=== PATIENT | male | born 1950 | race Caucasian/White ===

== ENCOUNTER 2022-05-03 13:34 | Emergency (ER) | payer OTHER ==
[~2022-05-03] VITALS: Ht 185.4 cm; Wt 91.6 kg
--- OUTSIDE RECORDS SUMMARY | 2022-05-03 16:55 | XMS ---
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 April VISIT COUNT (12 MO.) [address] TOTAL 3 NOTE: Visits indicate total known visits. 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 - Superficial foreign body, left foot, initial encounter - Type 2 diabetes mellitus without complications - Essential (primary) hypertension 08/03/2021 11:48 [facility] DAY [place] TYPE: Emergency COMPLAINT: - FELL AND IS CONSTIPATED DIAGNOSES: - Constipation, unspecified - Essential (primary) hypertension - Patient's other noncompliance with medication regimen - Constipation, unspecified - Essential (primary) hypertension - History of falling - Collapsed vertebra, not elsewhere classified, lumbar region, initial encounter for fracture - Personal history of malignant neoplasm of prostate - Personal history of malignant neoplasm of prostate - Type 2 diabetes mellitus with hyperglycemia - Abnormal levels of other serum enzymes - Constipation, unspecified - Abnormal levels of other serum enzymes - alf (current) use of insulin - Type 2 diabetes mellitus with hyperglycemia - History of falling - alf (current) use of insulin - Patient's other noncompliance with medication regimen - Collapsed vertebra, not elsewhere classified, lumbar region, initial encounter for fracture INPATIENT VISIT TRACKING (12 MO.) No inpatient visits to display in this time frame [id number]
--- NOTE | 2022-05-04 09:52 | EKG ---
[facility] [address] [place] [address] Signed Sinus tachycardia Left axis deviation Incomplete left bundle branch block Minimal voltage criteria for LVH, may be normal variant ( [place] product ) Nonspecific ST and T wave abnormality Abnormal ECG No previous ECGs available Confirmed by MAOJ LOPEZ MD ([id number]) on 05/04/2022 9:52:50 AM Electronically Signed By: MAJO LOPEZ MD 05/04/22 0952 PATIENT NAME: ZUNILDA WEST MAXIMILIANO Electrocardiogram DATE OF : 50 PHYSICIAN: MAJO LOPEZ MD REPORT #: [id number] REPORT IS CONFIDENTIAL AND NOT TO BE RELEASED WITHOUT AUTHORIZATION
== END 2022-05-03 19:00 | disposition short-term general hospital (02) ==
LOC: ED 13:34
DX: I48.91 Unspecified atrial fibrillation (principal); E11.65 Type 2 diabetes mellitus with hyperglycemia; Z20.822 Contact with and (suspected) exposure to COVID-19
CPT/HCPCS: 36415; 71045; 80053; 83735; 84484; 85025; 87502; 93005; 93010; 96361; 96374; 96375; 96376; 99285-25; C9803; J0153; J1815; J7030; U0003